=== PATIENT | male | born 1950 | race Caucasian/White ===

== ENCOUNTER → 2024-01-25 | Outpatient (CLI) | payer MEDICARE ==
--- NOTE | 2024-01-25 11:30 | MR ---
EXAMINATION TYPE: MR lumbar spine wo con DATE OF EXAM: 01/25/2024 COMPARISON: NONE HISTORY: Low back pain, ddd TECHNIQUE: T1 and T2 axial and sagittal images of the lumbar spine are submitted. FINDINGS: There is no abnormal signal seen within the visualized spinal cord or paraspinal soft tissu es. Multiple vertebral body hemangiomas most marked L3. Incidental note made of mild bladder trabecul ation which is only partially included in the [id number]. This can be associated with chronic cyst itis. At L1-2 there is mild degenerative disc disease. No disc herniation, canal stenosis or foraminal encr oachment. At L2-3 there is mild degenerative disc disease. No disc herniation, canal stenosis or foraminal encr oachment. At L3-4 there is facet arthropathy with ligamentum flavum hypertrophy and circumferential disc bulgin g. No canal stenosis. Mild bilateral foraminal enlargement. At L4-5 there is disc desiccation with facet arthropathy and broad-based disc protrusion. Ligamentum flavum hypertrophy. Facet arthropathy. Mild bilateral foraminal encroachment. Borderline to mild cent ral stenosis. At L5-S1 there is severe degenerative disc disease with grade 1 anterolisthesis. Broad-based disc bul ging with facet arthropathy. Question bilateral spondylolysis which could be confirmed with plain jay jay m x-ray. Moderate to severe right foraminal encroachment and moderate left foraminal encroachment.. IMPRESSION: 1. Severe degenerative disc disease L5-S1 with grade 1 anterolisthesis and moderate left and moderate to severe right foraminal encroachment. 2. Broad-based central disc protrusion at L4-L5 compressing the thecal sac. Hypertrophic facet arthro viridiana contributes to borderline to mild central stenosis and bilateral mild foraminal encroachment. 3. Multilevel degenerative disc disease.
== END | disposition home or self-care (01) ==
LOC: RADMRIMAIN 09:26
PROVIDERS: ATTEND Orthopaedic Surgery Orthopaedic Surgery of the Spine
DX: M43.17 Spondylolisthesis, lumbosacral region (principal); M51.26 Other intervertebral disc displacement, lumbar region; M47.816 Spondylosis without myelopathy or radiculopathy, lumbar region; M99.73 Connective tissue and disc stenosis of intervertebral foramina of lumbar region; M48.061 Spinal stenosis, lumbar region without neurogenic claudication; M51.37 Other intervertebral disc degeneration, lumbosacral region
CPT/HCPCS: 72148

== ENCOUNTER → 2024-02-11 | Outpatient (CLI) | payer MEDICARE ==
--- NOTE | 2024-02-11 16:07 | MR ---
EXAMINATION TYPE: MR brain and iac wo/w con DATE OF EXAM: 02/11/2024 11:28 AM CLINICAL INDICATION:Male, 73 years old with history of H90.3 SENSORINEURAL HEARING LOSS, BILATERAL; P HH, Right side hearing loss COMPARISON: None TECHNIQUE: Multi planar, multi sequence imaging was performed through the brain. Specialized thin s equences were obtained through the internal auditory canals. Pre-and post gadolinium sequences were obtained. MR contrast: IV Contrast: 7.5 cc Gadobutrol FINDINGS: Cerebral atrophy with proportional dilation of ventricular systems. The amezcua-white junctions, ventric ular system, and cisterns appear unremarkable. Minimal scattered foci of high T2 signal intensity ar e seen within the periventricular white matter. Midline structures show no abnormality. Diffusion-moon ghted imaging shows no evidence of restricted diffusion. The susceptibility weighted images do not re veal any evidence for micro-hemorrhage. The bone marrow signal is within normal limits. Paranasal sinuses and mastoid air cells: No significant paranasal sinus disease. Trace high T2 signal within the right mastoid air cells. Visualized orbits: Orbital contents are intact. After administration of gadolinium, no abnormal enhancement is seen. The internal auditory canal sequences demonstrate no significant irregularity. The 7th cranial nerve s, 8 cranial nerves, and cerebellar pontine angles appear unremarkable. After the administration kendall olinium, no abnormal enhancement is seen within the internal auditory canals. Vascular loop: None. IMPRESSION: 1. No evidence of intracranial mass nor acute/subacute CVA. 2. No evidence of internal auditory canal abnormality. 3. Minimal Nonspecific white matter changes, likely secondary to small vessel ischemic disease. 4. Trace right mastoid air cell effusion.
== END | disposition home or self-care (01) ==
LOC: RADMRIMAIN 10:07
PROVIDERS: ATTEND Otolaryngology
DX: H90.3 Sensorineural hearing loss, bilateral (principal); R90.82 White matter disease, unspecified; G93.6 Cerebral edema
CPT/HCPCS: 70553; A9585

== ENCOUNTER → 2024-09-20 | Outpatient (CLI) | payer MEDICARE ==
--- NOTE | 2024-09-20 10:51 | MR ---
EXAMINATION TYPE: MR lumbar spine wo con DATE OF EXAM: 09/20/2024 9:05 AM COMPARISON: 01/25/2024. CLINICAL INDICATION: Male, 74 years old with history of M48.062 SPINAL STENOSIS; PHH, Low back into rt buttocks, trauma x 6 months. TECHNIQUE: Multi planar, multi sequence imaging was performed utilizing: T1-weighted, T2-weighted, a nd turbo inversion recovery imaging of the lumbar spine. IV Contrast: mL (None, if empty) FINDINGS: Alignment: The lumbar vertebral bodies have preserved heights with grade 1 anterolisthesis of L5 on S 1. Cord: The conus medullaris and the distal spinal cord appear unremarkable with regards to their signa l intensity and morphology. Bones/Discs: Bony edema around the superior endplate of L4 and L1. There are Schmorl's nodes in this region. These are new from prior 01/25/2024. L3 vertebral body high T1 high T2 signal probable vertebr al body hemangiomas. T12-L1: No evidence of significant spinal canal stenosis or neural foraminal stenosis. L1-L2: No evidence of significant spinal canal stenosis or neural foraminal stenosis. L2-L3: Disc bulge and facet joint arthropathy result in mild spinal canal and mild bilateral neural f oraminal stenosis. L3-L4: Disc bulge and facet joint arthropathy result in mild spinal canal and mild bilateral neural f oraminal stenosis. L4-L5: Disc bulge and facet joint arthropathy result in mild spinal canal and mild bilateral neural f oraminal stenosis. L5-S1: Disc uncovering from grade 1 anterolisthesis and facet joint arthropathy with mild spinal jonas l stenosis and moderate to severe bilateral neural foraminal stenosis. No significant spinal canal or neural foraminal stenosis in the remainder of the visualized levels. Other findings: None. IMPRESSION: Acute Schmorl's nodes of L1 and L4 superior endplates with bony edema. No definitive evidence of disc herniation or significant spinal canal stenosis. Moderate disc degeneration with associated osteoarthritic changes. [facility], , 09/20/2024 10:49 AM
== END | disposition home or self-care (01) ==
LOC: RADMRIMAIN 08:25
PROVIDERS: ATTEND Orthopaedic Surgery Orthopaedic Surgery of the Spine
DX: M48.062 Spinal stenosis, lumbar region with neurogenic claudication (principal); M51.369 Other intervertebral disc degeneration, lumbar region without mention of lumbar back pain or lower extremity pain; M43.16 Spondylolisthesis, lumbar region; R60.9 Edema, unspecified
CPT/HCPCS: 72148